=== PATIENT | female | born 1990 | race Caucasian/White ===

== ENCOUNTER → 2018-12-18 12:40 | Outpatient (CLI) | payer BC, SELFPAY | PROVIDERS: PCP Nurse Practitioner Family; Visit Provider Nurse Practitioner Family | DX: Z71.3 Dietary counseling and surveillance (principal); E11.9 Type 2 diabetes mellitus without complications | CPT/HCPCS: 97802 ==

== ENCOUNTER 2019-04-23 04:31 | Emergency (ER) | payer BC, SELFPAY ==
[2019-04-23 04:42] VITALS: BP 127/85; PULSE 115; RESP 20; TEMP 37.2; O2SAT 98; BMI 29.9
--- NOTE | 2019-04-23 04:50 | CT_ITS ---
CT abdomen pelvis w con CLINICAL INDICATION: Nausea and vomiting, left-sided abdominal pain ITS.REASON: abd pain ORDERING PHYSICIAN: Rafiq Gillis MD PATIENT AGE: 28 years COMPARISON: None TECHNIQUE: Axial images obtained with sagittal and coronal reformats. All CT scans at the facility use one or more dose reduction, viz: automated exposure control, ma/kV adjustment per patient size (including targeted exams where dose is matched to indication, i.e. head), or iterative reconstruction technique. PROCEDURE: Oral Contrast: None IV Contrast: 75 mL's Optiray 350. FINDINGS: Lower thorax: Please see chest CT report The liver, gallbladder, adrenal glands, and pancreas have an unremarkable appearance. There is mild splenomegaly at 14 cm. No renal or ureteral calculi. No hydronephrosis. Scattered small lymph nodes are present in the mesentery's. No intestinal obstruction or free air. No evidence of appendicitis. There are few scattered small lymph nodes in the inguinal regions. Small amount fluid is present in the pelvis. There is a 15 mm well circumscribed lucent lesion in the right femoral neck unchanged. There is sclerosis of the SI joints on both sides IMPRESSION: 1. No acute abdominal or pelvic findings. 2. Mild splenomegaly. 3. Sacroiliitis
[2019-04-23 05:09] LABS: Microscopic, Urine URINE MICROSCOPIC (MICROSCOPIC)
[2019-04-23 05:16] LABS: Basophils # 0.1 K/mm3 (0-0.2); Basophils % 0.4 % (0.1-2.0); Eosinophils # 0.3 K/mm3 (0.0-0.4); Eosinophils % 2.8 % (0.1-12.0); Hemoglobin 10.8 g/dL (12.2-16.2); Lymphocytes % 23.6 % (10-50); Mean Corpuscular HGB Conc 31.8 g/dL (31.8-35.4); Mean Corpuscular Hemoglobin 22.4 pg (27.0-31.2); Mean Corpuscular Volume 70.4 fl (81-99); Mean Platelet Volume 7.4 fl (7.4-10.4); Monocytes # 0.6 K/mm3 (0.1-1.0); Neutrophils # 8.5 K/mm3 (1.8-7.8); Neutrophils % 68.2 % (37.0-80.0); Platelet Count 403 K/mm3 (142-424); Red Blood Count 4.83 M/mm3 (4.20-5.40); Red Cell Distribution Width 14.8 % (11.5-17.5); White Blood Count 12.4 K/mm3 (4.8-10.8)
[2019-04-23 05:21] LABS: Appearance,Urine CLEAR (Clear); Bilirubin,Urine Negative (Negative); Blood, Urine Negative (Negative); Color,Urine YELLOW (Yellow); Glucose,Urine (UA) Negative (Negative); Ketones,Urine Negative (Negative); Leukocyte Esterase,Urine Negative (Negative); Nitrate,Urine Negative (Negative); Protein,Urine Negative (Negative); Specific Gravity, Urine 1.015 (1.005-1.030); Urobilinogen,Urine 0.2 EU/dl (0.2)
[2019-04-23 05:22] LABS: Urine Pregnancy, HCG Qual. Negative (Negative)
[2019-04-23 05:27] LABS: Alanine Aminotransferase 25 U/L (12-78); Albumin Level 3.1 gm/dL (3.4-5.0); Albumin/Globulin Ratio 0.7 (1.1-1.8); Alkaline Phosphatase 103 U/L (46-116); Amylase 35 U/L (25-115); Anion Gap 10.9 mEq/L (5-15); Aspartate Amino Transferase 12 U/L (15-37); Bilirubin,Total 0.4 mg/dL (0.2-1.0); Blood Urea Nitrogen 17 mg/dL (7-18); Calcium 8.6 mg/dL (8.5-10.1); Carbon Dioxide 29 mmol/L (21.0-32.0); Chloride 96 mmol/L (98-107); Creatinine Clearance Estimated 104 mL/min (50-200); Creatinine,Serum 1.03 mg/dL (0.55-1.02); Estimated Glomerular Filt Rate 63 ml/min (>60); GFR (African American) 77 ML/MIN (>60); Globulin 4.4 gm/dl (1.3-3.2); Glucose 317 mg/dL (74-106); Lipase 141 u/L (73-393); Sodium 134 mmol/L (136-145); Total Protein,Serum 7.5 gm/dL (6.4-8.2)
[2019-04-23 05:30] LABS: Lactic Acid 1.5 mmol/L (0.4-2.0)
[2019-04-23 05:37] LABS: Potassium 1.9 mmoL/L (3.5-5.1)
[2019-04-23 05:42] LABS: WBC,Urine Occasional #/hpf (0-3)
[2019-04-23 05:43] LABS: Bacteria,Urine Trace /lpf; Squamous Epithelial Cell,Urine Occasional #/hpf (0-5)
[2019-04-23 05:50] LABS: Erythrocyte Sedimentation Rate 54 mm/hr (0-20)
[2019-04-23 06:12] LABS: Troponin I < 0.02 ng/ml (0.00-0.06)
--- NOTE | 2019-04-23 06:13 | HMH.EDNVD ---
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 insulin use status Diabetes mellitus complication status: with other specified complication Qualified Code(s): E11.69 - Type 2 diabetes mellitus with other specified complication Disposition: Home, Self-Care Condition on Discharge: Fair Instructions: DI for Pneumonia -- Adult Additional Instructions: use meds and see pcp for follow up Prescriptions: cephALEXin [Keflex 500mg Cap] 500 mg PO TID #30 cap Azithromycin [Zithromax 250mg tab] 250 mg PO DIRECTED #6 tab Referrals: Barrington Corrales MD [Primary Care Provider] - - Critical Care Critical Care Time: No Attestation: On 04/23/19, the high probability of a clinically significant, sudden or life threatening deterioration of the following system(s) required my full and direct attention, intervention and personal management. The time I documented below is in addition to time spent performing reported procedures but includes the following listed in this critical care notation. Medical Decision Making - Medical Records Medical records reviewed: Yes: I reviewed the patient's medical records. - Ezra Inquiry Pt receiving controlled substance: No Vital Signs: 04/23/19 04:42 04/23/19 06:33 Temperature 99 F 98.4 F Temperature Source Oral Oral Pulse Rate [Right] 115 H 96 H Respiratory Rate 20 20 Blood Pressure [Right Arm] 127/85 104/54 L Blood Pressure Mean [Right Arm] 99 70 02 Sat by Pulse Oximetry 98 95 Oxygen Delivery Method Room Air - Lab Data Lab results reviewed: Yes: I reviewed the patient's lab results. Lab Results 04/23/19 04:45: Urine Color Yellow, Urine Appearance Clear, Urine pH 7.0, Ur Specific [place] 1.015, Urine Protein Negative, Urine Glucose (UA) Negative, Urine Ketones Negative, Urine Blood Negative, Urine Nitrate Negative, Urine Bilirubin Negative, Urine Urobilinogen 0.2, Ur Leukocyte Esterase Negative, Urine WBC Occasional, Ur Squamous Epith Cells Occasional, Urine Bacteria Trace 04/23/19 04:45: WBC 12.4 H, RBC 4.83, Hgb 10.8 L, Hct 34.0 L, MCV 70.4 L, MCH 22.4 L, MCHC 31.8, RDW 14.8, Plt Count 403, MPV 7.4, Neut % (Auto) 68.2, Lymph % (Auto) 23.6, [place] % (Auto) 5.0, Eos % (Auto) 2.8, Baso % (Auto) 0.4, Neut # (Auto) 8.5 H, Lymph # (Auto) 3.0, [place] # (Auto) 0.6, Eos # (Auto) 0.3, Baso # (Auto) 0.1, ESR 54 H 04/23/19 04:45: Sodium 134 L, Potassium 1.9 L*, Chloride 96 L, Carbon Dioxide 29, Anion Gap 10.9, BUN 17, Creatinine 1.03 H, Estimated Creat Clear 104, Estimated GFR 63, Est GFR ( Amer) 77, Glucose 317 H, Calcium 8.6, Total Bilirubin 0.4, AST 12 L, ALT 25, Alkaline Phosphatase 103, C-Reactive Protein 8.0 H, Total Protein 7.5, Albumin 3.1 L, Globulin 4.4 H, Albumin/Globulin Ratio 0.7 L, Amylase 35, Lipase 141 04/23/19 04:45: Urine HCG, Qual Negative 04/23/19 05:06: Lactate 1.5 04/23/19 05:07: Monoscreen Negative 04/23/19 05:09: Troponin I < 0.02 Result diagrams: 04/23/19 04:45 04/23/19 04:45 Orders (Tests/Meds): ED MEDICATIONS Generic Name Dose Route Start Last Admin Trade Name Freq PRN Reason Stop Dose Admin Sodium Chloride 1,000 mls @ 999 mls/hr 04/23/19 05:00 04/23/19 05:26 Sod Chlor 0.9% 1000ml Bag IV 04/23/19 06:00 999 mls/hr .Q1H1M NAYAN Administration Ceftriaxone Sodium 1 gm/ 50 mls @ 100 mls/hr 04/23/19 07:21 04/23/19 07:24 Sodium Chloride IV 04/23/19 07:50 100 mls/hr ONCE ONE Administration Protocol Discontinued Medications Generic Name Dose Route Start Last Admin Trade Name Freq PRN Reason Stop Dose Admin Ioversol 75 ml 04/23/19 06:34 04/23/19 06:35 Rad-Optiray 350 100ml Vial IV 04/23/19 06:35 75 ml ONCE ONE Admin
--- NOTE | 2019-04-23 06:17 | XR_ITS ---
XR chest 2V HISTORY: Cough, fever, smoker ITS.REASON: fever, low k+ ORDERING PHYSICIAN: Rafiq Gillis MD PATIENT AGE: 28 years COMPARISON: None FINDINGS: The cardiomediastinal silhouette and pulmonary vascularity are within normal limits. Consolidation present in the right upper lobe inferiorly and anteriorly consistent with pneumonia. There is some patchy consolidation also in the right middle lobe. Recommend follow-up until clear. The left lung is clear. No obvious effusion. No acute bony findings. IMPRESSION: Right upper and right middle lobe pneumonia
--- NOTE | 2019-04-23 06:17 | ED_ITS ---
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 insulin use status Diabetes mellitus complication status: with other specified complication Qualified Code(s): E11.69 - Type 2 diabetes mellitus with other specified complication Disposition: Home, Self-Care Condition on Discharge: Fair Instructions: DI for Pneumonia -- Adult Additional Instructions: use meds and see pcp for follow up Prescriptions: cephALEXin [Keflex 500mg Cap] 500 mg PO TID #30 cap Azithromycin [Zithromax 250mg tab] 250 mg PO DIRECTED #6 tab Referrals: Barrington Corrales MD [Primary Care Provider] - - Critical Care Critical Care Time: No Attestation: On 04/23/19, the high probability of a clinically significant, sudden or life threatening deterioration of the following system(s) required my full and direct attention, intervention and personal management. The time I documented below is in addition to time spent performing reported procedures but includes the following listed in this critical care notation. Medical Decision Making - Medical Records Medical records reviewed: Yes: I reviewed the patient's medical records. - Ezra Inquiry Pt receiving controlled substance: No Vital Signs: 04/23/19 04:42 04/23/19 06:33 Temperature 99 F 98.4 F Temperature Source Oral Oral Pulse Rate [Right] 115 H 96 H Respiratory Rate 20 20 Blood Pressure [Right Arm] 127/85 104/54 L Blood Pressure Mean [Right Arm] 99 70 02 Sat by Pulse Oximetry 98 95 Oxygen Delivery Method Room Air - Lab Data Lab results reviewed: Yes: I reviewed the patient's lab results. Lab Results 04/23/19 04:45: Urine Color Yellow, Urine Appearance Clear, Urine pH 7.0, Ur Specific [place] 1.015, Urine Protein Negative, Urine Glucose (UA) Negative, Urine Ketones Negative, Urine Blood Negative, Urine Nitrate Negative, Urine Bilirubin Negative, Urine Urobilinogen 0.2, Ur Leukocyte Esterase Negative, Urine WBC Occasional, Ur Squamous Epith Cells Occasional, Urine Bacteria Trace 04/23/19 04:45: WBC 12.4 H, RBC 4.83, Hgb 10.8 L, Hct 34.0 L, MCV 70.4 L, MCH 22.4 L, MCHC 31.8, RDW 14.8, Plt Count 403, MPV 7.4, Neut % (Auto) 68.2, Lymph % (Auto) 23.6, [place] % (Auto) 5.0, Eos % (Auto) 2.8, Baso % (Auto) 0.4, Neut # (Auto) 8.5 H, Lymph # (Auto) 3.0, [place] # (Auto) 0.6, Eos # (Auto) 0.3, Baso # (Auto) 0.1, ESR 54 H 04/23/19 04:45: Sodium 134 L, Potassium 1.9 L*, Chloride 96 L, Carbon Dioxide 29 , Anion Gap 10.9, BUN 17, Creatinine 1.03 H, Estimated Creat Clear 104, Est imated GFR 63, Est GFR ( Amer) 77, Glucose 317 H, Calcium 8.6, Total Bilirubin 0.4, AST 12 L, ALT 25, Alkaline Phosphatase 103, C-Reactive Protein 8.0 H, Total Protein 7.5, Albumin 3.1 L, Globulin 4.4 H, Albumin/Globulin Ratio 0.7 L, Amylase 35, Lipase 141 04/23/19 04:45: Urine HCG, Qual Negative 04/23/19 05:06: Lactate 1.5 04/23/19 05:07: Monoscreen Negative 04/23/19 05:09: Troponin I < 0.02 Result diagrams: 04/23/19 04:45 04/23/19 04:45 Orders (Tests/Meds): ED MEDICATIONS Generic Name Dose Route Start
--- NOTE | 2019-04-23 06:18 | PC.NURSE ---
Pt moved to room with a monitor d/t low k+
[2019-04-23 06:33] VITALS: BP 104/54; PULSE 96; RESP 20; TEMP 36.9; O2SAT 95
--- NOTE | 2019-04-23 06:40 | PC.NURSE ---
on phone with dr wells
--- NOTE | 2019-04-23 06:42 | CT_ITS ---
CT chest w con HISTORY: Cough, congestion, pain, abnormal chest x-ray ITS.REASON: abnormal chest x ray ORDERING PHYSICIAN: Rafiq Gillis MD PATIENT AGE: 28 years COMPARISON: None TECHNIQUE: Axial images obtained following the administration of 75 mL of Optiray 350 . Sagittal, and coronal reformatted images are also generated and reviewed. All CT scans at the facility use one or more dose reduction, viz: automated exposure control, ma/kV adjustment per patient size (including targeted exams where dose is matched to indication, i.e. head), or iterative reconstruction technique. FINDINGS There are scattered small supraclavicular lymph nodes on the left. There is right hilar adenopathy. Mediastinal adenopathy is also noted with the largest nodes in the subcarinal region measuring 5 x 2 point its. The millimeters. Adenopathy is present in the right hilar region with increased soft tissue density in the right hilum anteriorly causing severe narrowing of the right middle lobe bronchus. Consolidation is present in the right middle lobe superiorly and within the right upper lobe anteriorly. There is a nodular density in the right upper lobe posteriorly along the major fissure 2 cm as well as the right middle lobe inferiorly and laterally 2.4 cm. There are 3 subpleural opacities in the right lung base. A nodule is also present in the left lower lobe anteriorly and laterally to 0.3 cm. 2 additional nodules are present in the left lower lobe 6 and 5 mm. No effusions are evident. There are few scattered lymph nodes in the axilla. No acute bony anomalies. The aorta has an unremarkable appearance. The pulmonary arteries are not well opacified. IMPRESSION: Abnormal chest CT. There is masslike consolidation involving the right upper lobe and right middle lobe with multiple bilateral nodular as described above. There is also right hilar and mediastinal adenopathy with severe narrowing of the right middle lobe bronchi from the right hilar adenopathy/soft tissue density in the right hilum. All of these findings could be explained by diffuse multifocal pneumonia with nodular appearance with reactive adenopathy. However, one cannot exclude the possibility of a neoplastic process such as lymphoma or metastatic disease with the adenopathy and the nodules in both lungs. Therefore, follow-up is strongly recommended following adequate treatment for pneumonia.
[2019-04-23 06:52] LABS: Monoscreen (Rapid) Negative (Negative)
[2019-04-23 07:43] VITALS: BP 96/48; PULSE 70; O2SAT 95
[2019-04-23 07:57] VITALS: BP 97/46; PULSE 81; RESP 16; TEMP 36.7; O2SAT 99
[2019-04-23 08:30] LABS: Hemoglobin A1C 8.5 % (0.0-7.0)
== END 2019-04-23 08:03 | disposition home or self-care (01) ==
PROVIDERS: Emergency Provider Emergency Medicine; PCP Family Medicine
DX: J18.1 Lobar pneumonia, unspecified organism (principal); E11.65 Type 2 diabetes mellitus with hyperglycemia; Z79.84 Long term (current) use of oral hypoglycemic drugs; R16.1 Splenomegaly, not elsewhere classified; F17.210 Nicotine dependence, cigarettes, uncomplicated
CPT/HCPCS: 71046; 71260; 74177; 80053; 81001; 81025; 82150; 83036; 83605; 83690; 84484; 85025; 85651; 86140; 86318; 93005; 96365; 96367; 96375; 99284; J2405; Q9967

== ENCOUNTER → 2020-06-19 15:46 | Outpatient (CLI) | payer BC, SELFPAY ==
--- NOTE | 2020-06-19 19:56 | PC.NURSE ---
COVID TEST RESULT CALLED TO PATIENT
--- NOTE | 2020-06-19 20:04 | PC.NURSE ---
COVID TEST NEGATIVE PATIENT AWARE.
== END ==
PROVIDERS: PCP Family Medicine; Visit Provider Nurse Practitioner Family
DX: Z03.818 Encounter for observation for suspected exposure to other biological agents ruled out (principal)
CPT/HCPCS: U0003

== ENCOUNTER 2020-12-09 10:33 | Emergency (ER) | payer BC, SELFPAY ==
--- NOTE | 2020-12-09 10:34 | HMH.EDUTC ---
[facility] [place] Impression: Exposure to COVID-19 virus, Lymphadenopathy Otitis media Qualifiers: Otitis media type: suppurative Chronicity: acute Laterality: right Recurrence: non-recurrent Spontaneous tympanic membrane rupture: with spontaneous rupture Qualified Code(s): H66.011 - Acute suppurative otitis media with spontaneous rupture of ear drum, right ear Disposition: Home, Self-Care Condition on Discharge: Good Instructions: Middle Ear Infection, DI for Tympanic Membrane Perforation-Adult Additional Instructions: Use the ear drops as directed. Take the antibiotics as directed. Follow up with your regular doctor. I put in a referral to an ear nose and throat doctor (Dr. Urrutia). Please follow up with him to make sure your ear infection is getting better. Call his office and schedule an appointment. GO TO THE ER FOR ANY WORSENING SYMPTOMS OR CONCERNS Prescriptions: Amoxicillin/Potassium Clav [Augmentin 875-125 Tablet] 1 tab PO Q12H 10 Days #20 tab Transmission Status: Received by [id number] Ciprofloxacin HCl/Dexameth [Cipro 0.3%-Dex 0.1% Otic Susp 7.5mL] 2 drops EAR-RIGHT BID 7 Days #1 bottle Transmission Status: Received by [id number] Referrals: Barrington Corrales MD [Primary Care Provider] - Toni Urrutia MD [Staff Physician] - Time of Disposition: 11:07 Medical Decision Making - Medical Records Medical records reviewed: No: I reviewed the patient's medical records. - Ezra Inquiry Pt receiving controlled substance: No Vital Signs: 12/09/20 10:40 12/09/20 11:01 Temperature 97.4 F L 97.4 F L Temperature Source Oral Pulse Rate 113 H Pulse Rate [Right Brachial] 113 H Respiratory Rate 14 14 Blood Pressure 118/75 Blood Pressure [Right Arm] 118/75 Blood Pressure Mean [Right Arm] 89 Blood Pressure Source [Right Arm] Automatic Cuff Blood Pressure Position [Right Arm] Sitting 02 Sat by Pulse Oximetry 96 Oxygen Delivery Method Room Air [facility] [place] - General Stated complaint: knot on R side of neck Time Seen by Provider: 12/09/20 10:35 - History of Present Illness Provider Complaint: She states that for the past 2 days she has had a swollen area on the right side of her neck. She has also had right ear pain and discharge from the canal. She denies any fever/chills/body aches. - Related Data Home Medications Medication Instructions Recorded Confirmed Potassium Chloride 20 meq PO DAILY 10/22/18 12/09/20 Metformin HCl 500 mg PO BID 04/23/19 12/09/20 Previous Rx's Medication Instructions Recorded Amoxicillin/Potassium Clav 1 tab PO Q12H 10 Days #20 tab 12/09/20 [Augmentin 875-125 Tablet] Ciprofloxacin HCl/Dexameth [Cipro 2 drops EAR-RIGHT BID 7 Days #1 12/09/20 0.3%-Dex 0.1% Otic Susp 7.5mL] bottle Allergies Allergy/AdvReac Type Severity Reaction Status Date / Time No Known Allergies Allergy Verified 10/22/18 07:31 [facility] History - Hepatitis A Screen Attestation statement:: This patient has been screened for Hepatitis A risk factors. I have reviewed the patient's past medical history: Yes Medical History: Reports:: Diabetes Mellitus Type 2 - Social History Smoking Status: Current every day smoker Tobacco Type: cigarettes # Packs/Day (cigarettes): 1 Alcohol Intake: never Occupational Status: other Housing: house ROS Obtained: Yes All systems reviewed & no additional complaints - Constitutional Constitutional: Reports chills, Reports fever(s), Reports poor appetite, Reports malaise - Eyes Eyes: Denies eye discharge - ENT Ears, Nose, Mouth, and Throat: Reports as per HPI - Cardiovascular Cardiovascular: Denies chest pain - Respiratory Respiratory: Denies chest congestion, Denies cough Physical Exam - General General appearance: alert, in no apparent distress - Head Head exam: atraumatic, normocephalic, normal inspection - Eye Eye exam: Present: normal appearance, PERRL, EOMI - ENT ENT exam:
[2020-12-09 10:40] VITALS: BP 118/75; PULSE 113; RESP 14; TEMP 36.3; O2SAT 96; BMI 32.5
[2020-12-09 11:01] VITALS: BP 118/75; PULSE 113; RESP 14; TEMP 36.3; O2SAT 96
== END 2020-12-09 11:18 | disposition home or self-care (01) ==
PROVIDERS: Emergency Provider Nurse Practitioner Family; PCP Family Medicine
DX: Z20.822 Contact with and (suspected) exposure to COVID-19 (principal); H66.011 Acute suppurative otitis media with spontaneous rupture of ear drum, right ear; L04.0 Acute lymphadenitis of face, head and neck; E11.9 Type 2 diabetes mellitus without complications; Z79.84 Long term (current) use of oral hypoglycemic drugs; F17.210 Nicotine dependence, cigarettes, uncomplicated
CPT/HCPCS: 99202; G0463; U0003

== ENCOUNTER 2021-09-29 08:02 | Emergency (ER) | payer BC, SELFPAY ==
[2021-09-29 08:07] VITALS: BMI 32.5
[2021-09-29 08:08] VITALS: BP 141/100; PULSE 116; RESP 20; TEMP 36.7; O2SAT 96; BMI 32.5
--- NOTE | 2021-09-29 08:08 | XR_ITS ---
PROCEDURE: XR CHEST 2V CLINICAL HISTORY: cough/chest congestion COMPARISON: No exams were available for comparison FINDINGS: The cardiomediastinal silhouette and pulmonary vascularity are within normal limits. Linear increased density is present in the right perihilar region extending superior laterally. This may be due to scarring. On the lateral view there is a 1.7 cm nodular opacity along the major fissure. It is uncertain as to which side this is on not readily visible on the PA view. Chest CT may provide further evaluation in this patient with history of multiple nodular opacities and extensive right upper lobe pneumonia. No acute bony abnormalities. IMPRESSION: Right upper lobe scarring. Indeterminate 17 mm nodule along the major fissure as seen on the lateral view. Dictated by: Jeferson Vaughn MD 09/29/2021 08:57 Jeferson Vaughn MD in [place] 09/29/2021 08:57
--- NOTE | 2021-09-29 08:11 | HMH.EDGENADL ---
ED Disposition Clinical Impression: Viral upper respiratory infection, Mediastinal adenopathy, Pulmonary nodules, Axillary adenopathy Disposition: Home, Self-Care Condition on Discharge: Good Instructions: DI for Viral Upper Respiratory Infection -- Adult Additional Instructions: Off work until Saturday. Follow-up with your primary care provider if not improved by Saturday. [id number] cough/cold medications. Follow-up with your primary care provider and with pulmonary doctor, Dr. Mckeon, for pulmonary nodules and enlarged lymph nodes. Call for appointments. Referrals: Barrington Corrales MD [Primary Care Provider] - Lupe Mckeon MD [Physician] - Forms: Work/School Release - Critical Care Critical Care Time: No Attestation: On 09/29/21, the high probability of a clinically significant, sudden or life threatening deterioration of the following system(s) required my full and direct attention, intervention and personal management. The time I documented below is in addition to time spent performing reported procedures but includes the following listed in this critical care notation. Medical Decision Making - Ezra Inquiry Pt receiving controlled substance: No Vital Signs: 09/29/21 08:08 09/29/21 09:01 09/29/21 09:30 Temperature 98.1 F Temperature Source Oral Pulse Rate 88 77 Pulse Rate [Left Radial] 116 H Respiratory Rate 20 18 18 Blood Pressure 101/75 L 115/73 Blood Pressure [Right Arm] 141/100 H Blood Pressure Mean 81 79 Blood Pressure Mean [Right Arm] 113 Blood Pressure Source [Right Arm] Automatic Cuff Blood Pressure Position [Right Arm] Sitting 02 Sat by Pulse Oximetry 96 96 97 Oxygen Delivery Method Room Air - Lab Data Lab Results 09/29/21 08:17: Group A Strep Rapid Negative 09/29/21 08:17: SARS-CoV-2 (PCR) Not detected, Influenza A Untype (PCR) Not detected, Influenza Type B (PCR) Not detected Orders (Tests/Meds): ORDERS Category Date Time Status Strep Screen Confirmation Stat Micro 09/29/21 08:17 Received - Radiology Data #1 Image(s): Chest Image Reviewed: Yes I reviewed the patient's radiology image, Yes I discussed the image results w/the radiologist, Yes I have reviewed radiologist's interpretation PROCEDURE: XR CHEST 2V CLINICAL HISTORY: cough/chest congestion COMPARISON: No exams were available for comparison FINDINGS: The cardiomediastinal silhouette and pulmonary vascularity are within normal limits. Linear increased density is present in the right perihilar region extending superior laterally. This may be due to scarring. On the lateral view there is a 1.7 cm nodular opacity along the major fissure. It is uncertain as to which side this is on not readily visible on the PA view. Chest CT may provide further evaluation in this patient with history of multiple nodular opacities and extensive right upper lobe pneumonia. No acute bony abnormalities. IMPRESSION: Right upper lobe scarring. Indeterminate 17 mm nodule along the major fissure as seen on the lateral view. Dictated by: Jeferson Vaughn MD 09/29/2021 08:57 Jeferson Vaughn MD in [place] 09/29/2021 08:57 - CT Data CT Scan: Chest Time Received: 10:[address] Reviewed: Yes: I have viewed the radiologist's interpretation Findings Narrative: PROCEDURE: CT CHEST WO CON CLINICAL INDICATION: nodule on CXR and f/u of abnl chest CT 2018 COMPARISON: CT CHESTW CT chest w con from 04/23/2019 TECHNIQUE: Axial images obtained with sagittal and coronal reformats. All CT scans at the facility use one or more dose reduction, viz: automated exposure control, ma/kV adjustment per patient size (including targeted exams where dose is matched to indication, i.e. head), or iterative reconstruction technique. FINDINGS: HEART AND MEDIASTINAL STRUCTURES: Thyroid gland is enlarged on both sides. No discrete nodule apparent of the thyroid. There are mildly pr
[2021-09-29 08:23] LABS: Coronavirus 19, PCR Not Detected (NotDetected); Influenza A, PCR Not Detected (NotDetected); Influenza B, PCR Not Detected (NotDetected)
[2021-09-29 08:41] LABS: Strep Scrn Group A (Rapid) Negative (Negative)
--- NOTE | 2021-09-29 08:57 | CT_ITS ---
PROCEDURE: CT CHEST WO CON CLINICAL INDICATION: nodule on CXR and f/u of abn chest CT 2018 COMPARISON: CT CHESTW CT chest w con from 04/23/2019 TECHNIQUE: Axial images obtained with sagittal and coronal reformats. All CT scans at the facility use one or more dose reduction, viz: automated exposure control, ma/kV adjustment per patient size (including targeted exams where dose is matched to indication, i.e. head), or iterative reconstruction technique. FINDINGS: HEART AND MEDIASTINAL STRUCTURES: Thyroid gland is enlarged on both sides. No discrete nodule apparent of the thyroid. There are mildly prominent lymph nodes in the pre-vascular region and pretracheal area. Prominent adenopathy is present in the subcarinal region at 3.6 by 2 cm. This previously measured 4.8 by 2.5 cm. There is minimal thickening of the pericardium. LUNGS AND PLEURAL SPACES: Irregular increased density is present in the right upper lobe. A large area of consolidation was present in this region on 04/23 19. This is consistent with post inflammatory scarring. Subpleural nodule is present along the inferior aspect of this scarring. This area measures 1.4 x 1.2 cm previously measuring 2.3 by 1.4 cm. This may account for the radiographic abnormality noted on the lateral exam. In the right middle lobe anteriorly and inferiorly there is a 1.4 by 1.2 cm subpleural nodule. This was not present on the previous exam. There is also a new area subpleural opacity in the right costophrenic sulcus laterally. This measures 1.2 by 0.9 cm. A 9 mm subpleural nodules present in the right lung base posteriorly in the costophrenic sulcus. This also is not present on the previous exam parenchymal scarring is present in the left lower lobe anteriorly along the major fissure at a previously noted area of consolidation. There are atelectatic or fibrotic changes in the left lung base medially. BONY STRUCTURES: No acute bony abnormalities apparent. UPPER ABDOMEN: Splenomegaly at 13 cm AP. There are few small celiac lymph nodes ADDITIONAL FINDINGS: . there is right axillary adenopathy which is progressed compared to the previous exam there are small nodes in the left axilla. Right axillary nodes measure up to 2.4 by 1.3 cm. IMPRESSION: Abnormal chest CT. There is mediastinal and right axillary adenopathy. Mediastinal adenopathy has shown some improvement from the previous study. The right axillary adenopathy is worse compared to the previous exam. Postinflammatory scarring in the right upper lobe and in the left lower lobe. Bilateral subpleural nodules. This is somewhat less prominent in the right upper lobe laterally. New subpleural nodules are present in the right middle lobe anteriorly, right lower lobe laterally, and right lower lobe posteriorly. These could be inflammatory/infectious in nature. One cannot exclude the possibility of a neoplastic process. Continued follow-up is suggested. Sarcoidosis would be a consideration. Pulmonology consult may be in order. Dictated by: Jeferson Vaughn MD 09/29/2021 09:44 Jeferson Vaughn MD in [place] 09/29/2021 09:44
[2021-09-29 09:01] VITALS: BP 101/75; PULSE 88; RESP 18; O2SAT 96
[2021-09-29 09:30] VITALS: BP 115/73; PULSE 77; RESP 18; O2SAT 97
[2021-09-29 10:00] VITALS: BP 110/80; PULSE 83; RESP 22; O2SAT 97
[2021-09-29 11:01] VITALS: BP 110/80; PULSE 80; RESP 18; TEMP 37.1; O2SAT 96
== END 2021-09-29 11:01 | disposition home or self-care (01) ==
PROVIDERS: Emergency Provider Emergency Medicine; PCP Family Medicine
DX: J06.9 Acute upper respiratory infection, unspecified (principal); R91.8 Other nonspecific abnormal finding of lung field; R59.0 Localized enlarged lymph nodes; F17.210 Nicotine dependence, cigarettes, uncomplicated
CPT/HCPCS: 71046; 71250; 87430; 99282; C9803; U0003; U0005

== ENCOUNTER → 2021-11-01 07:41 | Outpatient (CLI) | payer BC, SELFPAY ==
--- NOTE | 2021-11-01 07:41 | CT_ITS ---
PROCEDURE: CT CHEST WO CON CLINICAL INDICATION: lymphadenopathy COMPARISON: CT CT CHEST WO CON from 09/29/2021 TECHNIQUE: Axial images obtained with sagittal and coronal reformats. All CT scans at the facility use one or more dose reduction, viz: automated exposure control, ma/kV adjustment per patient size (including targeted exams where dose is matched to indication, i.e. head), or iterative reconstruction technique. FINDINGS: HEART AND MEDIASTINAL STRUCTURES: Thyroid gland is enlarged bilaterally with heterogeneous density. Mild mediastinal adenopathy once again noted with the largest caitlyn enlargement in the subcarinal region not significantly changed. There is mild thickening of the pericardium anteriorly which has developed since the previous exam. LUNGS AND PLEURAL SPACES: No change in the scarring in the right upper lobe and left lower lobe. Numerous bilateral subpleural nodular opacities are once again noted not significantly changed. No effusions. No new nodules apparent. BONY STRUCTURES: No acute bony abnormalities apparent. UPPER ABDOMEN: Hepatosplenomegaly with fatty liver ADDITIONAL FINDINGS: There are numerous small and a few mildly prominent nodes in the axillary regions on both sides. The adenopathy in the right axillary region is slightly improved. IMPRESSION: Overall no change in the mediastinal adenopathy and numerous subpleural nodules. The right axillary adenopathy is slightly improved. No change in the scarring in the right upper lobe and left lower lobe. Findings may be inflammatory/infectious. Neoplasm is not excluded and continued follow-up is suggested. CT-guided FNA could be performed of subpleural nodule in the right upper lobe if clinically desired Dictated by: Jeferson Vaughn MD 11/02/2021 08:52 Jeferson Vaughn MD in [place] 11/02/2021 08:52
== END ==
LOC: RAD 07:41
PROVIDERS: PCP Family Medicine; Visit Provider Internal Medicine Pulmonary Disease
DX: R59.0 Localized enlarged lymph nodes (principal); R91.8 Other nonspecific abnormal finding of lung field
CPT/HCPCS: 71250

== ENCOUNTER → 2021-11-18 11:01 | Outpatient (CLI) | payer BC, SELFPAY | PROVIDERS: Visit Provider Internal Medicine Pulmonary Disease | DX: Z20.822 Contact with and (suspected) exposure to COVID-19 (principal) | CPT/HCPCS: C9803; U0003; U0005 ==

== ENCOUNTER 2021-11-20 08:00 | Day surgery (SDC) | payer BC, SELFPAY ==
[2021-11-15 13:27] VITALS: BMI 30.9
[2021-11-20] VITALS (10 sets, daily range): BP systolic 96–122; BP diastolic 58–89; PULSE 77–103; RESP 12–24; TEMP 36.1–36.6; O2SAT 92–96
[2021-11-20 09:01] LABS: HCG Qualitative, Serum Negative (Negative)
--- NOTE | 2021-11-20 11:23 | HMH.ANESCL ---
[facility] Anesthesia Checklist - Structural Data Admitted From: Home Planned Operative Procedure/s: bronchoscopy Consent for Planned Operative Procedure(s) Verified: Yes - Additional verifications Anesthesia Reactions: Yes (drowsiness) Hx Blood Transfusions: No Blood Transfusion Reaction: No - Airway Assessment C-Spine Mobility Assessed: Yes TMJ Mobility Assessed: Yes Dentition: Good Dentition - Neurological Assessment Level of Consciousness: Awake, Alert, Appropriate - Anesthesia Plan Anesthesia Risk discussed: Yes Anesthesia Plan: Verified ASA Class: III Anesthesia Type: General [facility] History I have reviewed the patient's past medical history: Yes Medical History: Denies:: Cancer, Diabetes Mellitus Type 1, Diabetes Mellitus Type 2, MRSA, Seizures *Have you ever received a pneumonia vaccine?: No *Have you received a flu vaccine this season?: No Other Medical History: Denies: Blood Transfusion Reaction Anesthesia experience/problems:: none Amputation: No Fractures: No - *Social History Last grade of school completed: GED Smoking Status: Current every day smoker Tobacco Type: cigarettes # Packs/Day (cigarettes): 1 Alcohol Intake: never Substance Use Type: denies use *Occupational Status:: employed Housing: house Household Members: significant other, children *Travel in the last 8 weeks: None Family Hx:: No significant family history
--- NOTE | 2021-11-20 12:12 | P.PN_ITS ---
[facility] Anesthesia Record Part I Intake, IV Amount: 1,200 Estimated blood loss (mL): 0 Urine output (mL): 0 Blood Pressure: 118/85 SaO2: 95 Pulse Rate: 96 Respiratory Rate: 12 Temperature: 97 F Patient is:: Awake, Stable Stable to PACU at:: 12:10
[2021-11-20 12:23] LABS: POC Glucose,Bedside 242 (70-110)
--- NOTE | 2021-11-20 14:26 | HMH.BRONCH ---
- Procedure: Date: 11/20/21 Patient Date of :: 1990 Procedure Performed:: Bronchoscopy with EBUS FNA Indications:: Mediastinal and hilar lymphadenopathy Performing Provider:: Lupe Mckeon MD Referring Provider:: Dr. Gillis Sedation:: General anesthesia Procedure:: Bronchoscopy with endobronchial ultrasound fine-needle aspiration: -The scope was advanced the ET tube and lymph node surveillance was performed. Lymphadenopathy was noted at station 10L, station 7 and station 10 R. EBUS FNA was performed at station 10 L and 7 and 10 R with 5 passes at each station that was sent to cytopathological examination. EBUS samples from station 10 L and 7 were also sent for bacterial fungal and AFB stain and cultures. Patient tolerated the procedure well. Onsite pathological examination did not show any evidence of malignancy. No obvious granulomatous disease noted. Necrotic tissue noted. Adequate lymph node samples obtained. Findings:: Please see the procedure note Recommendations:: Please see the procedure note on following the clinic Complications:: None Estimated blood obtained (mL): 5
--- NOTE | 2021-11-21 08:15 | HMH.ANESII ---
[facility] Anesthesia Record Part II Discharge Time: 12:50 Destination: Surgical Day Care (OP Surgery) PACU nurse assessment reviewed?: Yes Patient Condition:: Good Anesthesia Complications:: None Swallowing reflex intact?: Yes Cyanosis?: No Blood Pressure: 103/68 Pulse Rate: 86 Temperature: 97.9 F Mental Status: Alert & Oriented Pain level:: 0 Nausea and/or vomitting:: None Intake, IV Amount: 0
[2021-11-21 08:16] VITALS: BP 103/68; PULSE 86; TEMP 36.6
--- NOTE | 2021-11-21 10:33 | SUR.PHASEI ---
11/20/21 1220 BS obtained while in PACU. TRINI Paige notified of elevated blood sugar reading. No new orders were given at that time.
[2022-08-09 10:56] LABS: POC Glucose,Bedside 277 (70-110)
== END 2021-11-20 13:22 | disposition home or self-care (01) ==
LOC: OR 08:01
PROVIDERS: PCP Family Medicine; Visit Provider Internal Medicine Pulmonary Disease
PROC: (CPT 31653; principal; 2021-11-20 10:00)
DX: R59.0 Localized enlarged lymph nodes (principal)
CPT/HCPCS: 31653; 82962; 84703; 87070; 87102; 87116; 87186; 87205; 87206; J2405; J2710

== ENCOUNTER → 2022-05-31 14:54 | Outpatient (CLI) | payer BC, SELFPAY ==
--- NOTE | 2022-05-31 14:54 | CT_ITS ---
FINAL REPORT TECHNIQUE: Axial CT images were performed from the lung apices through the upper abdomen. Coronal reformats were submitted. This study was performed with techniques to keep radiation doses as low as reasonably achievable (ALARA). Individualized dose reduction techniques using automated exposure control or adjustment of mA and/or kV according to the patient's size were employed. CLINICAL HISTORY: 6 month F/U COMPARISON: 11/01/2021 FINDINGS: Multiple bilateral and enlarged mediastinal nodes are identified. Subcarinal node measures 3.7 cm, stable. There are multiple borderline sized axillary nodes, somewhat improved on the right. There is right middle lobe scar. Other areas of scarring are identified. There are multiple pleural based nodules. There is a nodule in the medial right middle lobe measuring 14 mm, was 14 mm. One of the areas in the right lower lobe has improved. Other areas are stable. Note is made of mild emphysema. There are multiple small nonobstructing right renal stones Heart size is normal. There is no pericardial or pleural effusion. IMPRESSION: Overall appearance of the chest is slightly improved of uncertain etiology, favor inflammatory. Consider additional follow-up in 12 months. Multiple small nonobstructing right renal stones. Reviewed, Interpreted and Dictated by Steve Short III, MD Transcribed by Priya Car Authenticated and [facility]
== END ==
LOC: RAD 14:54
PROVIDERS: PCP Family Medicine; Visit Provider Internal Medicine Pulmonary Disease
DX: R59.0 Localized enlarged lymph nodes (principal)
CPT/HCPCS: 71250

== ENCOUNTER 2022-12-18 17:12 | Emergency (ER) | payer BC, SELFPAY ==
--- NOTE | 2022-12-18 18:57 | EXP.UTC ---
Discharge Plan Disposition Patient Disposition: Home, Self-Care Condition: Good Prescriptions Prescriptions: New azithromycin [Zithromax] 250 mg tablet 250 mg PO UD DOSE PK Qty: 6 0RF Rx Instructions: Take two (2) tablets today, then one (1) tablet days #2 thru #5 methylprednisolone 4 mg Tablets,Dose Pack 4 mg PO DIRECTED Qty: 21 0RF No Action nicotine (polacrilex) 2 mg gum 2 mg buccal Q2H PRN (Reason: nicotine cravings) Qty: 396 0RF Rx Instructions: Weeks 1 to 6: Chew 1 piece every 2 hours As NEEDED Weeks 7 to 9: Chew 1 piece every 4 hors As NEEDED Weeks 1o to 12: Chew 1 piece every 8 hours As NEEDED potassium chloride 20 MEQ tablet extended release 20 meq PO DAILY metformin 500 MG tablet 500 mg PO BID Referrals Follow up/Referrals: Isela Campbell APRN [Primary Care Provider] - See instructions Activity Restrictions/Add. Instructions Additional Instructions/Restrictions: Drink plenty of fluids. Take tylenol or ibuprofen for pain or fever. Take the medications as directed. Follow up with your regular doctor. GO TO THE ER FOR ANY WORSENING SYMPTOMS Clinical Impressions Clinical Impression: Pharyngitis, Acute viral syndrome Stand Alone Forms Stand Alone Forms: Work/School Release Instructions Patient Instructions: DI for Strep Throat Discharge ED Provider: Roberth Cooper [facility] General Stated complaint: sore throat,cough,TRJUILLO Body aches Time Seen by Provider: 12/18/22 18:57 History of Present Illness Provider Complaint: She states that for the past 2 days she has had sore throat, chills, and malaise. Related Data Home Medications Medication Instructions Recorded Confirmed potassium chloride 20 mEq 20 meq PO DAILY Supplement 10/22/18 07/17/22 tablet,extended release metformin 500 mg tablet 500 mg PO BID Diabetes 04/23/19 07/17/22 Previous Rx's Medication Instructions Recorded nicotine (polacrilex) 2 mg gum 2 mg buccal Q2H PRN nicotine 07/17/22 cravings #396 ea azithromycin 250 mg tablet 250 mg PO UD DOSE PK #6 tabs 12/18/22 (Zithromax) methylprednisolone 4 mg tablets in 4 mg PO DIRECTED #21 tabs 12/18/22 a dose pack Allergies Allergy/AdvReac Type Severity Reaction Status Date / Time No Known Allergies Allergy Verified 07/17/22 13:05 [facility] Disclaimer: The information contained in this section may have been updated after the patient was seen, as this information can be updated by other users. Medical History Hilar lymphadenopathy Mediastinal lymphadenopathy Multiple pulmonary nodules Pulmonary emphysema Tobacco abuse Tobacco abuse counseling Surgical History No significant past surgical history Family History Other No significant family history Social History Smoking Status: Current every day smoker tobacco type: cigarettes packs per day: 1 alcohol intake: never substance use type: denies use current occupational status: employed Travel in the last 8 weeks: Inside the [place] household members: significant other and children housing: house current occupation: 3M ROS Obtained: Yes All systems reviewed & no additional complaints except as documented Constitutional Constitutional: Reports chills and Reports fever(s) Eyes Eyes: Denies eye discharge ENT Ears, Nose, Mouth, and Throat: Reports as per HPI Cardiovascular Cardiovascular: Denies chest pain Respiratory Respiratory: Denies chest congestion and Reports cough Gastrointestinal Gastrointestingal: Reports nausea; Denies abdominal pain, constipation, cramping, diarrhea or vomiting Musculoskeletal Musculoskeletal: Denies arthralgias Integumentary/Breasts Skin/Breast: Denies rash Neurologic Neurologic: Den
[2022-12-18 19:18] LABS: UTC Strep Screen (Rapid) Negative (Negative)
[2022-12-18 19:40] VITALS: BP 145/83; PULSE 117; RESP 20; TEMP 37.7; O2SAT 96
== END 2022-12-18 19:41 | disposition home or self-care (01) ==
PROVIDERS: Emergency Provider Nurse Practitioner Family; PCP Nurse Practitioner Family
DX: U07.1 COVID-19 (principal); J02.9 Acute pharyngitis, unspecified; R05.9 Cough, unspecified; R52 Pain, unspecified
CPT/HCPCS: 87880; 99212; 99214; C9803; G0463; U0003; U0005

== ENCOUNTER → 2023-01-10 12:43 | Outpatient (CLI) | payer BC, SELFPAY ==
--- NOTE | 2023-01-10 13:20 | PC.NURSE ---
PFT completed. Pt did not give good effort, Pt also broke down crying due to recently finding her mother . Albuterol 0.083% given via HHN, per protocol, Pt tolerated tx well.
--- NOTE | 2023-01-10 13:38 | CT_ITS ---
FINAL REPORT TECHNIQUE: Thin section axial images were obtained from the lung apices through the upper abdomen without contrast. This study was performed with techniques to keep radiation doses as low as reasonably achievable (ALARA). Individualized dose reduction techniques using automated exposure control or adjustment of mA and/or kV according to the patient's size were employed. CLINICAL HISTORY: nodule F/U RLL anterior nodule COMPARISON: 05/31/2022 FINDINGS: There is no axillary lymphadenopathy. Mediastinal lymph nodes are stable. An enlarged subcarinal lymph node measures 3.4 cm, was 3.6 cm, unchanged. There is no pleural or pericardial effusion. There are bilateral nodular opacities. There is stable right upper lobe nodularity on images 31-37. A nodular opacity just anterior to the right major fissure on the on image 45 measures 2.1 cm and was 2.1 cm. A right middle lobe inferior nodular opacity is larger, measuring 2 cm and was 1.4 cm. This now has central ground-glass opacity. Subpleural right lower lobe opacities appear slightly worse. Left lower lung mixed density opacities are stable. On the limited, unenhanced evaluation of the upper abdomen, the liver and spleen appear mildly enlarged. There is a nonobstructing right renal stone.. There is no acute osseous abnormality. IMPRESSION: 1. Bilateral pulmonary opacities, some of which are nodular, some are worse and some are stable. Favor infectious or inflammatory process. Recommend continued follow-up. 2. Stable lymphadenopathy. 3. Hepatosplenomegaly. Reviewed, Interpreted and Dictated by Mona Hanna MD Transcribed by Michelle Baires Authenticated and [facility]
== END ==
LOC: RT 12:45
PROVIDERS: PCP Nurse Practitioner Family; Visit Provider Internal Medicine Pulmonary Disease
DX: R91.8 Other nonspecific abnormal finding of lung field (principal)
CPT/HCPCS: 71250; 94060; 94726; 94729

== ENCOUNTER → 2023-01-17 10:11 | Outpatient (CLI) | payer BC, SELFPAY ==
[2023-01-17 11:19] LABS: C-Reactive Protein 12.6 mg/L (0-4)
[2023-01-18 15:48] LABS: Angiotensin Converting Enzyme 73 U/L (14-82)
[2023-01-20 18:04] LABS: Aspergillus flavus Negative (Neg:<1:1); Aspergillus fumigatus Negative (Neg:<1:1); Aspergillus niger Negative (Neg:<1:1); Blastomyces Antibody Negative (Neg:<1:1)
== END ==
LOC: LAB 10:12
PROVIDERS: PCP Nurse Practitioner Family; Visit Provider Internal Medicine Pulmonary Disease
DX: R06.09 Other forms of dyspnea (principal); J84.10 Pulmonary fibrosis, unspecified
CPT/HCPCS: 36415; 82164; 86140; 86606; 86612

== ENCOUNTER 2024-05-08 07:42 | Emergency (ER) | payer BC, SELFPAY ==
[2024-05-08 07:44] VITALS: BP 145/91; PULSE 107; RESP 13; TEMP 36.8; O2SAT 98; BMI 29.9
--- NOTE | 2024-05-08 07:51 | PC.NURSE ---
dr reyes at bedside
--- NOTE | 2024-05-08 07:55 | XR_ITS ---
FINAL REPORT CLINICAL HISTORY: heel pain, no known trauma COMPARISON: None FINDINGS: LEFT FOOT Three views of the left foot demonstrate an age-indeterminate nondisplaced fracture involving a plantar calcaneal enthesophyte. There is no fracture of the ankle joint. The ankle mortise is intact. The visualized joint spaces are normally aligned. The soft tissues are unremarkable. IMPRESSION: Age-indeterminate nondisplaced plantar calcaneal enthesophyte fracture. Reviewed, Interpreted and Dictated by Edith Robertson MD Transcribed by Uma Larson Authenticated and [facility]
--- NOTE | 2024-05-08 07:55 | XR_ITS ---
FINAL REPORT CLINICAL HISTORY: heel pain, no known trauma COMPARISON: None FINDINGS: LEFT ANKLE Three views of the left ankle demonstrate an age-indeterminate nondisplaced fracture involving a plantar calcaneal enthesophyte. There is no fracture of the ankle joint. The ankle mortise is intact. The visualized joint spaces are normally aligned. The soft tissues are unremarkable. IMPRESSION: Age-indeterminate nondisplaced plantar calcaneal enthesophyte fracture. Reviewed, Interpreted and Dictated by Edith Robertson MD Transcribed by Uma Larson Authenticated and [facility]
--- NOTE | 2024-05-08 07:56 | ED_ITS ---
Discharge Plan Disposition Patient Disposition: Home, Self-Care Condition: Good Prescriptions Prescriptions: New naproxen 500 mg tablet 500 mg PO BID Qty: 20 0RF No Action nicotine (polacrilex) 2 mg gum 2 mg buccal Q2H PRN (Reason: nicotine cravings) Qty: 396 0RF Rx Instructions: Weeks 1 to 6: Chew 1 piece every 2 hours As NEEDED Weeks 7 to 9: Chew 1 piece every 4 hors As NEEDED Weeks 1o to 12: Chew 1 piece every 8 hours As NEEDED potassium chloride 20 MEQ tablet extended release 20 meq PO DAILY metformin 500 MG tablet 500 mg PO BID Referrals Follow up/Referrals: Isela Campbell APRN [Primary Care Provider] - See instructions Kat Eubanks DPM [Staff Physician] - See instructions Activity Restrictions/Add. Instructions Additional Instructions/Restrictions: You were evaluated in the emergency department today. You have a very small stress fracture of the heel bone of your foot. Please production support developer your prescription for anti-inflammatory and take as prescribed. You may also take Tylenol every 4-6 hours at home as needed for pain. Use your walking boot to limit stress on this area. Use crutches as needed to help with weightbearing. Follow-up closely with podiatry. We have provided you with information for Dr. Eubanks. Return to the emergency department for new or worsening symptoms. Clinical Impressions Clinical Impression: Stress fracture of calcaneus Stand Alone Forms Stand Alone Forms: Work/School Release Instructions Patient Instructions: DI for Stress Fracture, DI for Acute Pain -- Adult, DI for Calcaneal Apophysitis Discharge ED Provider: Yue Willingham General Adult HPI General Chief complaint: PAIN Stated complaint: L foot pain Time Seen by Provider: 05/08/24 07:45 Mode of Arrival: Ambulatory Source of Information: Patient Limitations: No Limitations Description of Symptoms (Recalled from ER Triage Doc. by RN): pt presents to ED with c/o left ankle pain. pt reports pain ongoing since april 24. pt reports no known injuries. pt reports that pain has been intermittent. History of Present Illness HPI narrative: This patient is a 33-year-old female with a history of obesity, diabetes, and tobacco dependence presenting to the emergency department for evaluation with concern for left heel/ankle pain since . She states that initially she was having pain, but then it had improved, but now the pain has come back and is so severe that she is having trouble walking and putting weight on her foot. Is worse with any weightbearing or ambulating. Nothing seems to make it better or worse. No known injuries. No wounds, swelling, skin color changes, or other concerns. Related Data Home Medications Medication Instructions Recorded Confirmed potassium chloride 20 mEq 20 meq PO DAILY Supplement 10/22/18 01/15/23 tablet,extended release metformin 500 mg tablet 500 mg PO BID Diabetes 04/23/19 01/15/23 Previous Rx's Medication Instructions Recorded nicotine (polacrilex) 2 mg gum 2 mg buccal Q2H PRN nicotine 07/17/22 cravings #396 ea naproxen 500 mg tablet 500 mg PO BID #20 tabs 05/08/24 Allergies Allergy/AdvReac Type Severity Reaction Status Date / Time No Known Allergies Allergy Verified 01/15/23 14:29 [facility] Disclaimer: The information contained in this section may have been updated after the patient was seen, as this information can be updated by other users. Medical History Smoking greater than 20 pack years Dyspnea on exertion Pulmonary emphysema Tobacco abuse counseling Tobacco abuse Pulmonary emphysema Hilar lymphadenopathy Mediastinal lymphadenopathy Multiple pulmonary nodules Surgical History No significant past surgical history Family History Other No significant family history Social History Smoking Status: Current every day smoker tobacco type: cigarettes packs per day: 1 alcohol intake: never substance use type: denies use current occupational status: employed Travel in the last 8 weeks: None household members: significant other and children housing: house current occupation: 3M ROS Obtained: Yes All systems reviewed & no additional complaints except as documented Physical Exam General General appearance: alert and in no apparent distress Head Head exam: atraumatic and normocephalic Eye Eye exam: Present normal appearance, PERRL and EOMI ENT ENT exam: Present normal exam, normal oropharynx, mucous membranes moist and normal external ear exam Neck Neck exam: Present normal inspection, full ROM and trachea midline; Absent tenderness Chest Chest inspection: Present normal inspection and symmetric chest wall rise; Absent tenderness Respiratory Respiratory exam: Present normal lung sounds bilaterally; Absent respiratory distress, wheezes, stridor or accessory muscle use Cardiovascular Cardiovascular exam: Present regular rate and normal rhythm Abdominal Exam Abdominal exam: Present soft; Absent distention, tenderness or guarding Extremities Exam Extremities exam: Present full ROM, tenderness (Tenderness to palpation over the plantar fascia especially at the heel), normal capillary refill and other (All compartments soft, neurovascularly intact distally.); Absent edema Back Exam Back exam: Present normal inspection and full ROM; Absent tenderness Neurological Exam Neurological exam: Present alert, oriented X3, CN II-XII intact and normal gait; Absent motor sensory deficit Psychiatric Psychiatric exam: Present normal affect and normal mood Skin Skin exam: Present warm and dry Medical Decision Making Medical Records Medical records reviewed: Yes I reviewed the patient's medical records. Ezra Inquiry Pt receiving controlled substance: No Vital Signs: 05/08/24 07:44 05/08/24 08:15 Temperature 98.2 F Temperature Source Oral Pulse Rate 88 Pulse Rate [Left Radial] 107 H Respiratory Rate 13 Blood Pressure 126/80 Blood Pressure [Right Arm] 145/91 H Blood Pressure Mean [Right Arm] 109 02 Sat by Pulse Oximetry 98 99 Oxygen Delivery Method Room Air Room Air Lab Data Lab results reviewed: Yes I reviewed the patient's lab results. Orders (Tests/Meds): ED MEDICATIONS Discontinued Medications Generic Name Dose Route Start Last Admin Trade Name Freq PRN Reason Stop Dose Admin Acetaminophen 1,000 mg 05/08/24 07:55 05/08/24 08:04 Acetaminophen 500mg Tab PO 05/08/24 07:56 1,000 mg ONCE ONE Administration Naproxen 500 mg 05/08/24 07:55 05/08/24 08:03 Naproxen 500mg Tablet PO 05/08/24 07:56 500 mg ONCE ONE Administration ORDERS Category Date Time Status Ankle XR - Left minimum 3 Views [XR ankle LT min 3V] Exams 05/08/24 07:55 Completed Stat XR foot LT min 3V Stat Exams 05/08/24 07:55 Completed Medical Decision Narrative: In summary, this patient is a 33-year-old female presenting to the Emergency Department for evaluation of left foot/ankle pain. Differential diagnoses considered include but are not limited to fracture, contusion, strain/sprain, plantar fasciitis, arthritis. Ruling out the most morbid conditions drove assessment. It should be noted patient's history includes obesity, hypertension, and tobacco use which may or may not be at goal therapy. This complicates all aspects of care by increasing patient's risk for morbidity. On exam, the patient is well-appearing and is neurovascularly intact with no obvious swelling or deformity. She has tenderness palpation over her heel and plantar fascia workup included the left foot and ankle. She was given oral Tylenol and naproxen for symptomatic improvement. I independently interpreted x- ray prior to the radiologist read and noted calcaneal enthesopathy with nondisplaced fracture. Please see their read for final interpretation. At this time, feel patient would benefit from walking boot and crutches to limit weightbearing on the left heel to allow for healing of her stress fracture. She was given these and instructions for limited weightbearing status. She was given prescription for naproxen for anti-inflammatory to help with pain. At this time, I feel that she is appropriate for discharge home with close follow- up with podiatry. She was given strict return precautions and was discharged in stable condition after all questions were answered. Critical Care Critical Care Time Critical Care Time: No
--- NOTE | 2024-05-08 08:02 | PC.NURSE ---
pt to xray via wheelchair
[2024-05-08] MEDS: NAPROXEN 500MG TABLET 500 MG PO (08:03)
--- NOTE | 2024-05-08 08:03 | PC.NURSE ---
PT TO XR
[2024-05-08] MEDS: ACETAMINOPHEN 500MG TAB 1000 MG PO (08:04)
--- NOTE | 2024-05-08 08:09 | PC.NURSE ---
PT RETURNED FROM XR
[2024-05-08 08:15] VITALS: BP 126/80; PULSE 88; O2SAT 99
[2024-05-08 09:32] VITALS: BP 143/84; PULSE 83; RESP 13; TEMP 36.7; O2SAT 96
== END 2024-05-08 09:33 | disposition home or self-care (01) ==
PROVIDERS: Emergency Provider Emergency Medicine; PCP Nurse Practitioner Family
DX: M84.372A Stress fracture, left ankle, initial encounter for fracture (principal); M79.672 Pain in left foot; F17.210 Nicotine dependence, cigarettes, uncomplicated; E11.9 Type 2 diabetes mellitus without complications; Z79.84 Long term (current) use of oral hypoglycemic drugs
CPT/HCPCS: 73610; 73630; 99283

== ENCOUNTER 2024-06-22 08:35 | Outpatient (CLI) | payer BC, SELFPAY ==
--- NOTE | 2024-06-22 08:40 | XR_ITS ---
FINAL REPORT CLINICAL HISTORY: Calc stress fracture COMPARISON: 05/08/2024 FINDINGS: LEFT FOOT Three views of the left foot demonstrate interval healing of the previously noted plantar calcaneal spur fracture. There is no acute bony abnormality. Mild degenerative changes are noted at the first MTP. The visualized joint spaces are normally aligned. The soft tissues are unremarkable. IMPRESSION: No acute bony abnormality. Interval healing plantar calcaneal spur fracture. Reviewed, Interpreted and Dictated by Steve Short III, MD Transcribed by Uma Larson Authenticated and [facility]
== END 2024-06-22 23:59 | disposition home or self-care (01) ==
LOC: RAD 08:36
PROVIDERS: PCP Nurse Practitioner Family; Visit Provider Nurse Practitioner
DX: M84.375A Stress fracture, left foot, initial encounter for fracture (principal); M77.32 Calcaneal spur, left foot
CPT/HCPCS: 73630

== ENCOUNTER 2025-06-24 08:12 | Emergency (ER) | payer BC, SELFPAY ==
[2025-06-24] VITALS (9 sets, daily range): BP systolic 103–154; BP diastolic 61–99; PULSE 80–96; RESP 14–20; TEMP 36.6–36.7; O2SAT 98–99; BMI 29.9
[2025-06-24 08:23] LABS: Microscopic, Urine URINE MICROSCOPIC (MICROSCOPIC)
--- OUTSIDE RECORDS SUMMARY | 2025-06-24 08:25 | XMS_ITS | Clinical Summary ---
Author Organization [facility] ystem Address [address] [place] [address] Care Team Providers Care Pumping Station Supervisor Name Role Phone Unavailable Primary Care Provider Unavailabl e Social History Tobacco Use Types Packs/Day Years Used Date Smoking Tobacco: Never Assessed Abuse Screen Answer Date Recorded Unsafe at Home or Work/School Not on file Feels Threatened by Someone? Not on file 08/2023 Does Anyone Keep You from Co ntacting Others or Doint Things Outside the Home? Not on file 08/20/2023 Physical Sign of Abuse Present Not on file 1 Housing Stability Answer Date Recorded Current Living Arrangements Not on file 08/11 Potentially Unsafe Housing Conditions Not on karla e 08/20/2023 Family and Community Support Answer Orville e Recorded Help with Day-to-Day Activities Not on file 08/20/2023 Lonely or Isolated Not on file 08/20/2023 Employment Answer Date Recorded Do you want help finding or keeping work or a merary b? Not on file 08/20/2023 Disabilities Answer Date Recorded Concentrating, Remembering, or Making Decisions Difficulty Not on file 08/20/2023 Doing Errands Independently Difficulty Not on fi le 08/20/2023 Education Answer Date Recorded Help with school or training? Not on file Preferred Language Not on file 08/20/2023 Comments Unknown Sex and Gender Information Value Date Recorded Sex Assigned at Not on file Legal Sex Female 1:42 PM EDT Gender Identity Not on file Sexual Orientation Not on file Plan of Treatment Health Maintenance Due Date Last Done Comments ANNUAL PHYSICAL 1989 Annual Gynecologic Pelvic an d Breast Exam 1989 HEPATITIS C SCREENING 1989 TDAP/TD VACCINES (1 - Tdap) 2008 COVID-19 Vaccine (2023-2 5 season) 2024 INFLUENZA VACCINE 08/11/2025 Pneumococcal Vaccine 0-49 Aged Out No longer eligible based on patient's age to complete this topic
--- OUTSIDE RECORDS SUMMARY | 2025-06-24 08:25 | XMS_ITS | Encounter Summary ---
Author Organization Healthcare Address [address] [place] [address] Care Team Providers Care Trimming Machine Set Up Operator Name Role Phone Josh Corrales MD Primary Care Provider [phone] Lupe Mckeon MD Unavailable [phone] Kapil Griffiths DO Unavailable [phone] Isela Campbell APRN Primary Care Provider + [phone] Encounter Details Date Type Department Care Team (Late st Contact Info) Description 09/29/2021 Orders Only External Location [address] [place] [address] Huber West MD [address] [place] [address] Social History Tobacco Use Types Packs/Day Years Used Date Smoking Tobacco: Every Day Alcohol Use Standard Drinks/Week Comments No 0 (1 standard drink = 0.6 oz pur e alcohol) Comments Unknown Sex and Gender Information Value Date Recorded Sex Assigned at Not on file Legal Sex Female 6:46 PM EDT Gender Identity Not on file Sexual Orientation Not on file documented as of this encounter Plan of Treatment Not on file documented as of this encounter Procedures Procedure Name Priority Date/Time Associated Diagnosis Comments CT THORACIC OUTSIDE IMAGES 09/29/2021 9:05 AM EST documented in this encounter Results * CT THORACIC OUTSIDE IMAGES (09/29/2021 9:05 AM EST) Anatomical Region Laterality Modality Computed Tomogra phy 09/29/2021 9:05 AM EST Huber West MD IMG CT PROCEDURES Final Resu lt documented in this encounter Visit Diagnoses Not on filedocumented in this encounter Care Teams Trimming Machine Set Up Operator Relationship Specialty Start Date End Date Josh Corrales MD [address] [facility] [address] [place] [address] PCP - General 03/24/21 01/23/23 Isela Campbell APRN [address] [place], [place] [id number] PCP - General 01/24/23 Lupe Mckeon MD [address] [place] [address] Referring Physician 01/16/23 Kapil Griffiths DO [address] [place] [phone] Surgeon Cardiothoracic Surgery 01/16/23 documented as of this encounter
--- OUTSIDE RECORDS SUMMARY | 2025-06-24 08:25 | XMS_ITS | Clinical Summary ---
Author Organization Healthcare Address [address] [place] [address] Care Team Providers Care Fourth Grade Teacher Name Role Phone Lupe Mckeon MD Unavailable [phone] Kapil Griffiths DO Unavailable [phone] Isela Campbell APRN Primary Care Provider [phone] Allergies No known active allergies Medications potassium chloride CR (Klor-Con M20) 20 MEQ ER tablet TAKE 2 & 1/2 (TWO & ONE-HALF) TABLETS BY MOUTH THREE TIMES DAILY 07/04/2022 Active Tiotropium Waccabuc Monohydrate (Spiriva Respimat) 2.5 MCG/ACT inhaler Inhale 2 puffs 1 (one) time each day. Active Active Problems Problem Noted Date Diagnosed Date Tobacco use disorder 01/24/2023 Second hand smoke exposure 01/24/2023 Family History Medical History Relation Name Comments Cancer Other Depression Other Anesthesia problems Neg Hx Malig Hyperthermia Neg Hx Relation Name Status Comments Other Social History Tobacco Use Types Packs/Day Years Used Date Smoking Tobacco: Every Day Cigarettes 0.5 19.6 Started: 2005 Smokeless Tobacco: Never Tobacco Cessation:Ready to Q uit: Not Asked; Counseling Given: Not Answered Alcohol Use Standard Drinks/Week Comments No 0 (1 standard drink = 0.6 oz pur e alcohol) PHQ-2 Answer Date Recorded Patient Health Questionnaire-2 Score 1 01/24/2023 PHQ-2A Answer Date Recorded Patient Health Questionnaire-2 Score 1 01/24/2023 Comments No Sex and Gender Information Value Date Recorded Sex Assigned at Not on file Legal Sex Female 6:46 PM EDT Gender Identity Not on file Sexual Orientation Not on file Last Filed Vital Signs Vital Sign Reading Time Taken Comments Blood Pressure 124/81 01/24/2023 9:50 AM EDT Pulse 88 01/24/2023 9:50 AM EDT Temperature 36.6 C (97.9 F) 01/24/2023 9:50 AM EDT Respiratory Rate 16 01/24/2023 9:50 AM EDT Oxygen Saturation 97% 01/24/2023 9:50 AM EDT Inhaled Oxygen Concentration - - Weight 83.5 kg (184 lb) 02/12/2023 11:16 AM EDT Height 161.3 cm (5' 3.5 ) 01/24/2023 9:50 AM EDT Body Mass Index 32.08 01/24/2023 9:50 AM EDT Plan of Treatment Health Maintenance Due Date Last Done Comments [facility]-Depression Screening 1989 [facility]-/Child/Adol SDOH Screenings 1989 [facility]-Varicella Vaccines (1 of 2 - 13+ 2-dose series) 2002 [facility]- SDOH Screenings 2007 [facility]-Adult SDOH Screenings 2007 HPV Vaccines (3 - 3-dose series) 05/01/2008 01/06/2008, 10/31/2007 [facility]-Hepatitis B Vaccines (1 of 3 - 19+ 3-dose series) 2008 [facility]-Pap Smear 2010 [facility]-DTaP,Tdap,and Td Vaccines (2 - Td or Tdap) 07/10/2016 07/10/2006 [facility]-Cervical Cancer Screening 2019 [facility]-HPV/Cotest 2019 [id number] Vaccine (3 - season) 2024 09/26/2021, 09/05/2021 [facility]-Influenza Vaccine (#1) 2025 [facility]-Zoster Vaccines (1 of 2) 2039 [facility]-HIB Vaccines Aged Out No longer e ligible based on patient's age to complete this topic [facility]-Hepatitis A Vaccines Aged Out No longer eligible based on patient's age to complete this topic [facility]-IPV Vaccines Aged Out No longer e ligible based on patient's age to complete this topic [facility]-Pneumococcal Vaccine: Pediatrics (0 to 5 Years) and At-Risk Patients (6 to 49 Years) Aged Out No longer eligible b ased on patient's age to complete this topic [facility]-Rotavirus Vaccines Aged Out No lo nger eligible based on patient's age to complete this topic Insurance ANTH Care Teams Fourth Grade Teacher Relationship Specialty Start Date End Date Isela Campbell, MANAGER CRITICAL CARE [address] [place] [address] PCP - General 01/24/23 Lupe Mckeon MD [address] [place] [address] Referring Physician 01/16/23 Kapil Griffiths DO [address] [phone] Surgeon Cardiothoracic Surgery 01/16/23
--- OUTSIDE RECORDS SUMMARY | 2025-06-24 08:25 | XMS_ITS | Encounter Summary ---
Author Organization Healthcare Address [address] [place] [address] Care Team Providers Care Loan Associate Name Role Phone Josh Corrales MD Primary Care Provider [phone] Lupe Mckeon MD Unavailable [phone] Kapil Griffiths DO Unavailable [phone] Isela Campbell APRN Primary Care Provider + [phone] Encounter Details Date Type Department Care Team (Late st Contact Info) Description 11/01/2021 Orders Only External Location [address] [place] [address] Provider, External Social History Tobacco Use Types Packs/Day Years [...] Associated Diagnosis Comments CT THORACIC OUTSIDE IMAGES 11/01/2021 7:51 AM EST documented in this encounter Results * CT THORACIC OUTSIDE IMAGES (11/01/2021 7:51 AM EST) Anatomical Region Laterality Modality Computed Tomogra phy 11/01/2021 7:51 AM EST us External Provider IMG CT PROCEDURES Final Result documented in this encounter Visit Diagnoses Not on filedocumented in this encounter Care Teams Loan Associate Relationship Specialty Start Date End Date Josh Corrales MD [address] [place], [place] [phone] PCP - General 03/24/21 01/23/23 Isela Campbell APRN [address] [place], [place] [phone] PCP - General 01/24/23 Lupe Mckeon MD [address] [place], [place] [phone] Referring Physician 01/16/23 Kapil Griffiths DO [address] [place] [phone] Surgeon Cardiothoracic Surgery 01/16/23 documented as of this encounter
--- OUTSIDE RECORDS SUMMARY | 2025-06-24 08:25 | XMS_ITS | Encounter Summary ---
Author Organization Healthcare Address [address] [place] [address] Care Team Providers Care Strategic Sourcing Consultant Name Role Phone Josh Corrales MD Primary Care Provider [phone] Lupe Mckeon MD Unavailable [phone] Kapil Griffiths DO Unavailable [phone] Isela Campbell APRN Primary Care Provider + [phone] Encounter Details Date Type Department Care Team (Late st Contact Info) Description 05/31/2022 Orders Only External Location [address] [place] [address] Provider, External Social History Tobacco Use Types [...] Associated Diagnosis Comments CT THORACIC OUTSIDE IMAGES 05/31/2022 3:04 PM EDT documented in this encounter Results * CT THORACIC OUTSIDE IMAGES (05/31/2022 3:04 PM EDT) Anatomical Region Laterality Modality Computed Tomogra phy 05/31/2022 3:04 PM EDT us External Provider IMG CT PROCEDURES Final Result documented in this encounter Visit Diagnoses Not on filedocumented in this encounter Care Teams Strategic Sourcing Consultant Relationship Specialty Start Date End Date Josh Corrales MD [address] [facility] [address] [place] [address] PCP - General 03/24/21 01/23/23 Isela Campbell APRN [address] [facility] [place] [address] PCP - General 01/24/23 Lupe Mckeon MD [address] [place] [id number] Referring Physician 01/16/23 Kapil Griffiths DO [address] [place] [phone] Surgeon Cardiothoracic Surgery 01/16/23 documented as of this encounter
--- NOTE | 2025-06-24 08:30 | PC.NURSE ---
DR MARQUEZ AT BEDSIDE
[2025-06-24 08:35] LABS: Bilirubin,Urine Negative (Negative); Color,Urine YELLOW (Yellow); Glucose,Urine (UA) 3+ (Negative); Ketones,Urine Negative (Negative); Leukocyte Esterase,Urine Negative (Negative); PH,Urine 7.0 (5.0-8.5); Protein,Urine 1+ (Negative); Specific Gravity, Urine 1.010 (1.005-1.030); Urobilinogen,Urine 0.2 EU/dl (0.2)
--- NOTE | 2025-06-24 08:35 | CT_ITS ---
FINAL REPORT TECHNIQUE: Thin section axial images are obtained through the abdomen and pelvis after intravenous contrast. Reconstruction images were obtained from the axial data. Exam was performed using dose reduction techniques. CLINICAL HISTORY: LUQ and LLQ abd pain COMPARISON: 04/23/[address] chest 01/10/2023 FINDINGS: LUNG BASES: Bilateral lower lung nodular opacities, some of which is improved. New subpleural right lower lobe nodule measuring 10 mm on series 3, image 25. Heart size is normal. Subcarinal lymphadenopathy measuring 4 cm is similar to that seen on CT chest from 2022. LIVER: Fatty infiltrated and enlarged. No focal lesion. GALLBLADDER/BILIARY SYSTEM: Gallbladder is present. No gallstones. No biliary dilatation. SPLEEN: Enlarged, slightly greater than 14 cm. Innumerable subcentimeter hypodense lesions in the spleen not seen on the previous exam; however, may be related to contrast bolus timing. PANCREAS: Unremarkable. ADRENALS: Unremarkable. KIDNEYS/URETERS/BLADDER: No hydronephrosis or renal mass. Nonobstructing right renal stones. Unremarkable urinary bladder. GI TRACT: No evidence of small-bowel obstruction. Nonspecific wall thickening of the proximal small bowel loops. Normal appendix. Moderate amount of retained stool. GI tract otherwise without acute abnormality. PELVIC ORGANS: Ovaries and uterus normal for age. LYMPH NODES/RETROPERITONEUM/MESENTERY: Mildly prominent retroperitoneal lymph nodes and mesenteric lymph nodes are unchanged from prior exam. No abdominal aortic aneurysm. ABDOMINAL WALL: The abdominal wall is intact. FREE FLUID: Physiologic free fluid in the pelvis. BONES: Sclerosis across bilateral SI joints most consistent with sacroiliitis and similar to the prior study. No acute osseous abnormality. IMPRESSION: Mildly thickened proximal small bowel loops may represent enteritis. Multiple very small splenic lesions, not well appreciated on the previous exam but may be related to bolus timing. Given nodules and lymphadenopathy in the lower chest, sarcoidosis is a possibility. Other etiologies could be infectious or inflammatory. Malignancy is unlikely unless there is a previously known primary malignancy. Fatty liver. Small mesenteric and retroperitoneal lymph nodes, likely reactive. Reviewed, Interpreted and Dictated by Mona Hanna MD Transcribed by Uma Larson Authenticated and [facility]
--- NOTE | 2025-06-24 08:37 | HMH.EDGENADL ---
Discharge Plan Disposition Patient Disposition: Home, Self-Care Prescriptions Prescriptions: No Action potassium chloride 20 MEQ tablet extended release 20 meq PO DAILY naproxen 500 mg tablet 500 mg PO BID Qty: 20 0RF Referrals Follow up/Referrals: Barrington Corrales MD [Primary Care Provider, Medical] - See instructions Activity Restrictions/Add. Instructions Additional Instructions/Restrictions: Your potassium level was 2.5 today and was replaced. Your CAT scan demonstrated enteritis with some nonspecific mesenteric lymphadenopathy likely reactive most likely secondary to a viral infection. This is nonspecific please follow-up with your primary care doctor to ensure resolution. No emergent or surgical condition identified. Return with any significant worsening of your symptoms. Clinical Impressions Clinical Impression: Left sided abdominal pain, Constipation, Hypokalemia, Enteritis, Mesenteric lymphadenopathy Print Language Print Language: Bulgarian Discharge ED Provider: Julian Flanagan General Adult HPI General Chief complaint: PAIN Stated complaint: abd pain-Left side Time Seen by Provider: 06/24/25 08:29 History of Present Illness HPI narrative: Patient is a 34-year-old female presents today with left-sided abdominal pain this has been intermittent for 2 weeks. She states that she has been having increasing hard stools only every other day for last few weeks which is abnormal for her. Denies any hematuria. Denies any history of kidney stones. No burning frequency or urgency. She does have some back discomfort associated with this. Denies any diarrhea. No blood in her stool. No fevers chills nausea vomiting etc. 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 Related Data Home Medications ?Medication ?Instructions ?Recorded ?Confirmed potassium chloride 20 mEq 20 meq PO DAILY Supplement 10/22/18 06/25/24 tablet,extended release Previous Rx's ?Medication ?Instructions ?Recorded naproxen 500 mg tablet 500 mg PO BID #20 tabs 05/08/24 Allergies Allergy/AdvReac Type Severity Reaction Status Date / Time No Known Allergies Allergy Verified 06/25/24 14:30 [facility] Disclaimer: The information contained in this section may have been updated after the patient was seen, as this information can be updated by other users. Medical History Smoking greater than 20 pack years Dyspnea on exertion Pulmonary emphysema Tobacco abuse counseling Tobacco abuse Pulmonary emphysema Hilar lymphadenopathy Mediastinal lymphadenopathy Multiple pulmonary nodules Surgical History No significant past surgical history Family History Other No significant family history Social History Smoking Status: Current every day smoker tobacco type: cigarettes packs per day: 1 alcohol intake: never substance use type: denies use current occupational status: employed Travel in the last 8 weeks?: None household members: significant other and children housing: house current occupation: [employer] Have you lived/traveled outside US in past 30 days?: No Contact w/someone who lives/traveled outside US past 30 days?: No Exposure to someone with infectious disease in past 14 days?: No Do you have a fever (greater than 100.4 F or 38 C)?: No Have you tested positive for COVID-19?: No Exposed to someone with COVID-19 in past 14 days?: No Do you have a sore throat?: No Do you have a cough?: No Do you have any weakness?: No Do you have any diarrhea?: No Are you experiencing any unusual bleeding?: No Do you have any muscle aches/pain?: No Do you have any abdominal pain?: Yes Are you experiencing loss of taste or smell?: No Other Medical History Have you received the Flu Vaccine for this season: No Have you received the Pneumonia Vaccine: No ROS Obtained: Yes All systems reviewed & no additional complaints except as documented Physical Exam General General appearance: alert and in no apparent distress Respiratory Respiratory exam: Present normal lung sounds bilaterally Cardiovascular Cardiovascular exam: Present regular rate and normal rhythm Abdominal Exam Abdominal exam: Present soft and tenderness (Left upper quadrant left lower quadrant tenderness with deep palpation she also has left-sided mild CVA tenderness) Neurological Exam Neurological exam: Present alert and oriented X3 Medical Decision Making Medical Records Screening: Per USPSTF and CDC recommendations, given the prevalence of disease in our region, it is our hospital?s policy to screen for HIV and viral Hepatitis for all patients aged 18 and over and those with ongoing risk factors. Ezra Inquiry Pt receiving controlled substance: No Vital Signs: 06/24/25 08:13 06/24/25 08:30 06/24/25 09:52 Temperature 97.9 F Temperature Source Oral Pulse Rate 96 H 87 Pulse Rate [Radial] 96 H Respiratory Rate 18 18 Blood Pressure 154/99 H 147/88 H Blood Pressure [Right Arm] 154/99 H Blood Pressure Mean [Right Arm] 117 Blood Pressure Source [Right Arm] Automatic Cuff Blood Pressure Position [Right Arm] Sitting 02 Sat by Pulse Oximetry 99 98 98 Oxygen Delivery Method Room Air 06/24/25 10:00 06/24/25 10:35 06/24/25 11:00 Temperature Temperature Source Pulse Rate 89 86 86 Pulse Rate [Radial] Respiratory Rate 18 19 14 Blood Pressure 115/80 103/72 L 132/94 H Blood Pressure [Right Arm] Blood Pressure Mean [Right Arm] Blood Pressure Source [Right Arm] Blood Pressure Position [Right Arm] 02 Sat by Pulse Oximetry 98 98 99 Oxygen Delivery Method 06/24/25 11:30 06/24/25 12:30 Temperature Temperature Source Pulse Rate 85 81 Pulse Rate [Radial] Respiratory Rate 14 19 Blood Pressure 113/73 104/61 L Blood Pressure [Right Arm] Blood Pressure Mean [Right Arm] Blood Pressure Source [Right Arm] Blood Pressure Position [Right Arm] 02 Sat by Pulse Oximetry 99 99 Oxygen Delivery Method Lab Data Lab results reviewed: Yes I reviewed the patient's lab results. Lab Results 06/24/25 08:18: Urine Color Yellow, Urine Appearance Clear, Urine pH 7.0, Ur Specific [place] 1.010, Urine Protein 1+ A, Urine Glucose (UA) 3+, Urine Ketones Negative, Urine Blood Trace-i, Urine Nitrate Negative, Urine Bilirubin Negative, Urine Urobilinogen 0.2, Ur Leukocyte Esterase Negative, Urine RBC None, Urine WBC 5-10, Ur Squamous Epith Cells 20-50, Urine Bacteria Trace 06/24/25 08:35: WBC 13.7 H, RBC 5.00, Hgb 15.1, Hct 41.4, MCV 82.8, MCH 30.2, MCHC 36.5 H, RDW 13.2, Plt Count 243, MPV 10.5 H, Neut % (Auto) 58.0, Lymph % (Auto) 32.0, Snyder % (Auto) 6.8, Eos % (Auto) 2.2, Baso % (Auto) 0.3, Neut # (Auto) 7.9 H, Lymph # (Auto) 4.4, Snyder # (Auto) 0.9, Eos # (Auto) 0.3, Baso # (Auto) 0.0, Sodium 132 L, Potassium 2.5 L*, Chloride 93 L, Carbon Dioxide 31 H, Anion Gap 10.5, BUN 14, Creatinine 0.60, Estimated Creat Clear 169, Estimated GFR 114, Est GFR ( Amer) 138, Glucose 338 H, Calcium 9.2, Total Bilirubin 0.5, AST 29, ALT 29, Alkaline Phosphatase 115, Total Protein 7.3, Albumin 4.2, Globulin 3.1, Albumin/Globulin Ratio 1.4, Lipase 375 H, Serum HCG, Qual Negative, HIV Ag/Ab Combo Qual Negative 06/24/25 08:35 06/24/25 08:35 Orders (Tests/Meds): ED MEDICATIONS Discontinued Medications Generic Name Dose Route Start Last Admin Trade Name Freq PRN Reason Stop Dose Admin Lactated Ringer's 1,000 mls @ 999 mls/hr 06/24/25 08:45 06/24/25 09:06 Lactated Ringer's 1000 Ml Bag IV 06/24/25 09:45 999 mls/hr .Q1H1M NAYAN Administration Potassium Chloride/Water 100 mls @ 100 mls/hr 06/24/25 09:15 06/24/25 11:50 Potassium Chloride 10meq/100ml Ivpb IV 06/24/25 12:14 100 mls/hr Q1H NAYAN Administration Iopamidol 75 ml 06/24/25 09:47 06/24/25 09:49 Iopamidol-370 (76%);100ml Bottle IV 06/24/25 09:48 75 ml ONCE ONE Administration Potassium Chloride 60 meq 06/24/25 09:13 06/24/25 09:53 Potassium Chloride 20meq Tab PO 06/24/25 09:14 60 meq ONCE ONE Administration Sodium Chloride 10 ml 06/24/25 09:47 06/24/25 09:49 Sodium Chloride 0.9% 10ml Syr (Rad Only) IV 06/24/25 09:48 10 ml ONCE ONE Administration ORDERS Category Date Time Status CT abdomen pelvis w con Stat Cat Scan 06/24/25 08:35 Completed CBC w/Auto Diff [Complete Blood Count Auto Diff] Stat Lab 06/24/25 08:35 Completed CMP [Comprehensive Metabolic Panel] Stat Lab 06/24/25 08:35 Completed HCG Qualitative, Serum Stat Lab 06/24/25 08:35 Completed HIV Combo Stat Lab 06/24/25 08:35 Completed Lipase Stat Lab 06/24/25 08:35 Completed UA [Urinalysis and Microscopic] Stat Lab 06/24/25 08:18 Completed Medical Decision Narrative: Patient with above history and physical clinically most consistent with constipation however other things in the differential include colonic pathology which could include colitis, diverticulitis, malignancy also she has some left-sided CVA tenderness and could have pyelonephritis and/or kidney stone etc. Will get a contrasted CT scan labs urinalysis administer IV fluids and reassess. She denies need for any pain medicine or nausea medicine at the moment. CT scan performed which I personally interpreted which shows enteritis with nonspecific lymphadenopathy please see radiology read for formal read this is nonspecific she will need to follow-up to ensure resolution but this is most likely viral and reactive in nature. Labs demonstrate a potassium of 2.5 she is chronically low and has been much lower than this in the past but she was given 30 of IV potassium and 60 of p.o. potassium was in the emergency department for an extended period time regarding that. Serial assessment she looks much better feels better no other emergent medical condition identified today she was advised to follow-up outpatient with primary care doctor and return with any significant worsening of her symptoms. Critical Care Critical Care Time Critical Care Time: Yes Attestation: On 06/24/25, the high probability of a clinically significant, sudden or life threatening deterioration of the following system(s) required my full and direct attention, intervention and personal management. The time I documented below is in addition to time spent performing reported procedures but includes the following listed in this critical care notation. Total Time Total Critical Care Time: 35
[2025-06-24 08:43] LABS: Hematocrit 41.4 % (37.0-47.0); Hemoglobin 15.1 g/dL (12.2-16.2); Immature Granulocytes % 0.7 %; Mean Corpuscular HGB Conc 36.5 g/dL (31.8-35.4); Mean Corpuscular Hemoglobin 30.2 pg (27.0-31.2); Mean Corpuscular Volume 82.8 fl (81-99); Nucleated Red Blood Cells % 0 %; Platelet Count 243 K/mm3 (142-424); Red Blood Count 5.00 M/mm3 (4.20-5.40); Red Cell Distribution Width-SD 39.4 fL; White Blood Count 13.7 K/mm3 (4.8-10.8)
[2025-06-24 08:53] LABS: Albumin Level 4.2 g/dl (3.5-5.0); Chloride 93 mmol/L (98-107); Sodium 132 mmol/L (136-145)
[2025-06-24 08:55] LABS: Alanine Aminotransferase 29 U/L (12-78); Aspartate Amino Transferase 29 U/L (14-36); Blood Urea Nitrogen 14 mg/dl (7-17); Creatinine Clearance Estimated 169 mL/min (50-200); Creatinine,Serum 0.60 mg/dl (0.52-1.04); Estimated Glomerular Filt Rate 114 ml/min (>60); GFR (African American) 138 ML/MIN (>60); Potassium 2.5 mmoL/L (3.5-5.1)
[2025-06-24 08:56] LABS: Albumin/Globulin Ratio 1.4 (1.1-1.8); Alkaline Phosphatase 115 U/L (38-126); Anion Gap 10.5 mEq/L (5-15); Bilirubin,Total 0.5 mg/dl (0.2-1.3); Calcium 9.2 mg/dl (8.4-10.2); Carbon Dioxide 31 mmol/L (22.0-30.0); Globulin 3.1 g/dL (1.3-3.2); Glucose 338 mg/dl (74-100); Lipase 375 U/L (23-300); Total Protein,Serum 7.3 g/dl (6.3-8.2)
[2025-06-24] MEDS: LACTATED RINGERS 1000ML 1,000 ML 999 ML IV (09:06)
[2025-06-24 09:26] LABS: HCG Qualitative, Serum Negative (Negative)
[2025-06-24 09:27] LABS: Bacteria,Urine Trace /lpf; Squamous Epithelial Cell,Urine 20-50 #/hpf (0-5)
--- NOTE | 2025-06-24 09:35 | PC.NURSE ---
PT TO CT
[2025-06-24] MEDS: IOPAMIDOL-370 (76%);100ML BOTTLE 75 ML IV (09:49)
[2025-06-24] MEDS: SODIUM CHLORIDE 0.9% 10ML SYR (RAD ONLY) 10 ML IV (09:49)
[2025-06-24] MEDS: POTASSIUM CHLORIDE 20MEQ TAB 60 MEQ PO (09:53)
== END 2025-06-24 12:59 | disposition home or self-care (01) ==
PROVIDERS: Emergency Provider Student in an Organized Health Care Education/Training Program; PCP Family Medicine
DX: R10.32 Left lower quadrant pain (principal); E87.6 Hypokalemia; E87.1 Hypo-osmolality and hyponatremia; I88.0 Nonspecific mesenteric lymphadenitis; K59.00 Constipation, unspecified; F17.210 Nicotine dependence, cigarettes, uncomplicated
CPT/HCPCS: 74177; 80053; 81001; 83690; 84703; 85025; 87389; 96361; 96365; 96366; 99285; J3480; J7120; Q9967

== ENCOUNTER 2025-06-29 15:40 | Outpatient (CLI) | payer BC, SELFPAY ==
--- OUTSIDE RECORDS SUMMARY | 2025-06-30 11:15 | XMS_ITS | Clinical Summary ---
Author Organization Healthcare Address [address] [place] [address] Care Team Providers Care Diesel Powerplant Mechanic Name Role Phone Lupe Mckeon MD Unavailable [phone] Kapil Griffiths DO Unavailable [phone] Isela Campbell APRN Primary Care Provider [phone] Allergies No known active allergies Medications potassium chloride CR (Klor-Con M20) 20 MEQ ER tablet TAKE 2 & 1/2 (TWO & ONE-HALF) TABLETS BY MOUTH THREE TIMES DAILY 07/04/2022 Active Tiotropium [place] Monohydrate (Spiriva Respimat) 2.5 MCG/ACT inhaler Inhale [...] 07/10/2006 [facility]-Cervical Cancer Screening 2019 [facility]-HPV/Cotest 2019 [facility]-HIRAC-00 Vaccine (3 - season) 2024 09/26/2021, 09/05/2021 [...] complete this topic Insurance ANTH Care Teams Diesel Powerplant Mechanic Relationship Specialty Start Date End Date Isela Campbell, TWO NEEDLE MACHINE OPERATOR [address] [place] [address] PCP - General 01/24/23 Lupe Mckeon MD [address] [place] [address] Referring Physician 01/16/23 Kapil Griffiths DO [address] [phone] Surgeon Cardiothoracic Surgery 01/16/23
--- OUTSIDE RECORDS SUMMARY | 2025-06-30 11:15 | XMS_ITS | Encounter Summary ---
Author Organization Healthcare Address [address] [place] [address] Care Team Providers Care Welder Railcar Mechanic Name Role Phone Josh Corrales MD Primary Care Provider [phone] Lupe Mckeon MD Unavailable [phone] Kapil Griffiths DO Unavailable [phone] Isela Campbell APRN Primary Care Provider + [phone] Encounter Details Date Type Department Care Team (Late st Contact Info) Description 11/01/2021 Orders Only External Location [address] [place] [address] Provider, External Social History Tobacco Use Types [...] on filedocumented in this encounter Care Teams Welder Railcar Mechanic Relationship Specialty Start Date End Date Josh Corrales MD [address] [place], [place] [id number] PCP - General 03/24/21 01/23/23 Isela Campbell APRN [address] [place], [place] [id number] PCP - General 01/24/23 Lupe Mckeon MD [address] [place], [place] [id number] Referring Physician 01/16/23 Kapil Griffiths DO [address] [place] [phone] Surgeon Cardiothoracic Surgery 01/16/23 documented as of this encounter
--- OUTSIDE RECORDS SUMMARY | 2025-06-30 11:15 | XMS_ITS | Encounter Summary ---
Author Organization Healthcare Address [address] [place] [address] Care Team Providers Care Gold Leaf Printer Name Role Phone Josh Corrales MD Primary Care Provider [phone] Lupe Mckeon MD Unavailable [phone] Kapil Griffiths DO Unavailable [phone] Isela Campbell APRN Primary Care Provider + [phone] Encounter Details Date Type Department Care Team (Late st Contact Info) Description 09/29/2021 Orders Only External Location [address] [place] [address] Huber West MD [address] [place] [address] Social History Tobacco Use Types Packs/Day Years [...] on filedocumented in this encounter Care Teams Gold Leaf Printer Relationship Specialty Start Date End Date Josh Corrales MD [address] [facility] [address] [place] [address] PCP - General 03/24/21 01/23/23 Isela aCmpbell APRN [address] [place], [place] [phone] PCP - General 01/24/23 Lupe Mckeon MD [address] [place] [address] Referring Physician 01/16/23 Kapil Griffiths DO [address] [place] [phone] Surgeon Cardiothoracic Surgery 01/16/23 documented as of this encounter
--- OUTSIDE RECORDS SUMMARY | 2025-06-30 11:15 | XMS_ITS | Clinical Summary ---
Author Organization [facility] ystem Address [address] [place] [address] Care Team Providers Care Estimator Printing Name Role Phone Unavailable Primary Care Provider [...]
--- OUTSIDE RECORDS SUMMARY | 2025-06-30 11:15 | XMS_ITS | Encounter Summary ---
Author Organization Healthcare Address [address] [place] [address] Care Team Providers Care Plasterer Maintenance Name Role Phone Josh Corrales MD Primary Care Provider [phone] Lupe Mckeon MD Unavailable [phone] Kapil Griffiths DO Unavailable [phone] Isela Campbell APRN Primary Care Provider + [phone] Encounter Details Date Type Department Care Team (Late st Contact Info) Description 05/31/2022 Orders Only External Location [address] [place] [address] Provider, External Social History Tobacco Use Types [...] on filedocumented in this encounter Care Teams Plasterer Maintenance Relationship Specialty Start Date End Date Josh Corrales MD [address] [facility] [address] [place] [address] PCP - General 03/24/21 01/23/23 Isela Campbell APRN [address] [facility] [place] [address] PCP - General 01/24/23 Lupe Mckeon MD [address] [place] [id number] Referring Physician 01/16/23 Kapil Griffiths DO [address] [place] [phone] Surgeon Cardiothoracic Surgery 01/16/23 documented as of this encounter
== END 2025-06-29 23:59 | disposition home or self-care (01) ==
LOC: LAB.DROPOF 06-30 11:00
PROVIDERS: PCP Student in an Organized Health Care Education/Training Program; Visit Provider Student in an Organized Health Care Education/Training Program
DX: R52 Pain, unspecified (principal)
CPT/HCPCS: 87635